=== PATIENT | male | born 1965 | race Caucasian/White ===

== ENCOUNTER → 2020-08-17 13:07 | Outpatient (CLI) | payer BC, SELFPAY ==
--- NOTE | ~2020-08-17 | US_ITS ---
US renal BI 08/17/2020 13:24 Procedure: Realtime transabdominal ultrasound of the kidneys and bladder. Indication: Renal stones Comparison: No prior studies for comparison. Findings: Renal echotexture is normal bilaterally without hydronephrosis, contour deforming mass or r enal calculus. The right kidney measures 12 cm and left kidney measures 11.5 cm. Bladder within norm al limits. Impression: 1: Unremarkable renal ultrasound. No stones, masses or hydronephrosis. Reviewed, dictated and finalized at location B. Impression: 1: Unremarkable renal ultrasound. No stones, masses or hydronephrosis.
== END ==
PROVIDERS: PCP Family Medicine; Visit Provider Family Medicine
DX: N20.0 Calculus of kidney (principal)
CPT/HCPCS: 76775

== ENCOUNTER 2020-11-01 10:30 | Outpatient (CLI) | payer BC, SELFPAY ==
--- NOTE | ~2020-11-01 | XR_ITS ---
XR abdomen/kub 1V 11/01/2020 10:49 INDICATION: Left flank pain. History of kidney stone. TECHNIQUE: KUB COMPARISON: Ultrasound dated 08/17/2020 FINDINGS: Bowel gas pattern is normal. There is no evidence of free air, mass, organomegaly, ascites or obstruction. No abnormal calculi are seen. There are pelvic phleboliths. The bones appear intact . IMPRESSION: 1: No acute abdominal abnormality identified. Reviewed, dictated and finalized at location A. ORK CONTROL SUPERVISOR
== END 2020-11-01 10:31 | disposition home or self-care (01) ==
LOC: ANHIMG 10:36
PROVIDERS: PCP Family Medicine; Visit Provider Internal Medicine Nephrology
DX: R10.9 Unspecified abdominal pain (principal)
CPT/HCPCS: 74018

== ENCOUNTER 2025-02-05 09:34 | Outpatient (CLI) | payer BC, SELFPAY ==
--- OUTSIDE RECORDS SUMMARY | 2025-02-05 10:08 | XMS_ITS | Clinical Summary ---
Author Organization [facility] Address [address] [place] [phone] Phone Care Team Providers Care Silk Blocker Name Role Phone Derek Pavon MD Primary Care Provider Allergies No known active allergies Medications colchicine 0.6 MG tablet One with pain, on one hour later, then daily x 5 prn gout attack 7 tablet 2 02/14/2021 Active Active Problems Problem Noted Date Diagnosed Date Nonspecific abnormal results of function study o f kidney 11/01/2020 Left flank pain 11/01/2020 Hyperuricemia 11/01/2020 Family History Medical History Relation Comments Kidney disease Neg Hx Social History Tobacco Use Types Packs/Day Years Used Date Smoking Tobacco: Never Smokeless Tobacco: Never Alcohol Use Standard Drinks/Week Comments Yes 0 (1 standard drink = 0.6 oz pur e alcohol) rare Sex and Gender Information Value Date Recorded Sex Assigned at Not on file Legal Sex Male 10:18 AM [facility] Gender Identity Not on file Sexual Orientation Not on file Last Filed Vital Signs Vital Sign Reading Time Taken Comments Blood Pressure 124/86 08/17/2021 2:20 PM CDT Pulse 60 08/17/2021 2:20 PM CDT Temperature 36.4 C (97.5 F) 08/17/2021 2:20 PM CDT Respiratory Rate - - Oxygen Saturation - - Inhaled Oxygen Concentration - - Weight 101 kg (222 lb) 08/17/2021 2:20 PM CDT Height 188 cm (6' 2 ) 08/17/2021 2:20 PM CDT Body Mass Index 28.5 08/17/2021 2:20 PM CDT Plan of Treatment Health Maintenance Due Date Last Done Comments Influenza Vaccine (Season Ended) 2025 Insurance [facility] Care Teams Silk Blocker Relationship Specialty Start Date End Date Derek Pavon MD [address] [place] [id number] PCP - General Internal Medicine 09/07/20
--- NOTE | 2025-02-12 16:30 | WPDHOMESLEEP ---
Sleep Study - Home Unattended Date of Study: 02/05/25 Ordering Provider: DAMIR Kirkpatrick-C Interpreting Provider: Bridgette Nielson MD Home Sleep Study Type: Watch PAT Height: 1.88 m Weight: 102.058 kg Body Mass Index: 28.8 Neck Circumference (inches): 17.5 [place]: 16 Reason for Sleep Study Hypersomnolence Sleep History Clinton Cid is a 59-year-old man who has recent fatigue and changes in his sleep. He does not have hypertension or heart disease. He has pre diabetes and gout. His spouse reports that he snores and stops breathing at night. The patient wakes up with headaches and often wakes up gasping for air at night. He does not have difficulty breathing when he sleeps on his back. He wakes up with a dry mouth. He is not refreshed on waking. He has afternoon fatigue and now takes naps. He does not have drowsy driving. He does not have nocturnal heartburn. He wakes twice at night to go to urinate. He does not have difficulty falling asleep, does not have difficulty staying asleep. He does not have muscle weakness with strong emotion. He does not feel paralyzed on waking or falling asleep. He does not have vivid dreamlike scenes on waking or falling asleep. He does dream during his daytime naps. He does not clench or grind his teeth at night. He does not kick during sleep or jerk his legs excessively. He does not have a restless feeling in his legs. He does not act out his dreams. He does not sleep walk. Normal bedtime on work days is 10:30 p.m.. He falls asleep within 15 minutes, spends 8-1/2 hours in bed, 7 hours 45 minute sleeping. On days off, usual bedtime is 11:00 p.m., falling asleep within 15 minutes, spending 9 hours in bed, 8-1/2 hours of sleep. His sleep on days off is a little bit more restorative. He does not take planned naps. Habits: Tobacco: none Caffeine: 1-2 cups daily Alcohol: 1 glass on 1-2 nights per week Recreational substances: [facility] Past Medical History Medical History (Updated 02/12/25 @ 19:15 by Bridgette Nielson MD) Gout Prediabetes Family History Family History Father Family history of malignant neoplasm Social History Social History Smoking status: Never smoker Alcohol intake: current Lack of Transportation: No Lack of Food: Never True Current Housing: I Have Housing Concerned About Future Housing: No Difficulty Paying Gas/Electric Bills: No Difficulty Paying for Meds: No Currently Unemployed: No Education: Bachelor's Degree Difficulty w/ Childcare or Family Care: No Living arrangements: with family Gender identity (if verbalized by the patient): Male Medications Home Medications ?Medication ?Instructions ?Recorded ?Confirmed ?Type loratadine 10 mg tablet (Claritin) 10 mg PO DAILY PRN 06/09/24 01/30/25 History allopurinol 300 mg tablet See Rx Instructions .Route 01/30/25 01/30/25 Rx .COMPLEX #90 tabs Sleep Procedure The sleep study was completed using [employer] a technically adequate device with seven channels: peripheral arterial tone, actigraphy, body position, snore, respiratory movement, pulse oximetry, sleep staging, and heart rate. Prior to using the device, the patient received verbal and written instructions for its application and was provided with the help desk phone number for additional telephonic instruction with 24-hour availability of qualified personnel to answer questions. Sleep Architecture The total recording time is 8 hrs, 15 min. The total sleep time is 7 hrs, 43 min. Sleep latency is 10 minutes. REM latency is 95 minutes. The patient had 7 episodes of waking. Sleep architecture shows 10.8% deep sleep, 64.5% light sleep, and 24.7% stage REM. The patient spent 60.8% of total sleep time in the supine position. Sleep efficiency was 93%. Respiratory Analysis The overall AHI (pAHI 3%:) is 50.6. The central AHI is 21.3. The AHI was 49.9 in NREM and 52.5 in REM sleep. The AHI was 45.6 in Supine and 58.3 in Non-supine sleep. Percent of Gabe Andre respirations is 16.0%. Oximetry Data The oxygen desaturation index (EYAD 4%:) is 36.4. The mean saturation is 91%, and the lowest saturation is 83%. Time spent with saturation < 88% is 40.5 minutes. Snoring Profile Snoring average intensity is 41 dB. The patient snored above 45 decibels for 26.2 minutes, 5.7% of sleep time. Cardiac Profile The average pulse rate is 64 beats per minutes. The lowest pulse rate is 45 bpm. The highest pulse rate is 116 bpm. Cardiac Rhythm Analysis in Sleep shows suspected atrial fibrillation for 1 minute and 19 seconds. The longest event is 50 seconds. The patient had 0.4 premature beats per minute. Assessment and Plan Assessment and Plan (1) Obstructive sleep apnea: Code(s): G47.33 - Obstructive sleep apnea (adult) (pediatric) Status: Acute Assessment and Plan: This home sleep test using WatchPat on February 05, 2025 shows severe obstructive sleep apnea, apnea hypopnea index is 36.4 with desaturation to 83%, moderate central sleep apnea with central apnea index 21.3, 16% of the night with Gabe-Andre respirations, and probable atrial fibrillation. The patient spent 40.5 minutes, 8.7% of the night, with saturation below 88%. He is not a candidate for autoPAP. He needs to have a CPAP titration in the sleep lab with a sleep aid to use, if needed, to get to sleep and stay asleep. Consider Ambien 5 mg to 10 mg or Lunesta 2 mg to 3 mg. He should be instructed not to nap on the day of the study. (2) Central sleep apnea with Gabe-Andre respiration: Code(s): R06.3 - Periodic breathing Status: Acute Assessment and Plan: The central apnea index is 21.3 with 16% of the night showing Gabe-Andre breathing. Normal central apnea index should not exceed 5 events per hour. Gabe-Andre breathing is not a normal pattern. Central sleep apnea can be seen in those with congestive heart failure, stroke, opioid and alcohol dependence, although it can occur without other co-morbid conditions. The medical history does not indicate one of these conditions. However, the cardiac rhythm analysis suggests that atrial fibrillation may be present during sleep. He needs to have an echocardiogram to evaluate LV function. His cardiac rhythm will be monitored during the CPAP titration. Data The data obtained during this sleep study is adequate for interpretation. Certification This sleep study has been reviewed by a board certified sleep medicine physician.
[2025-02-12 17:04] VITALS: BMI 28.8
== END 2025-02-12 12:54 | disposition home or self-care (01) ==
PROVIDERS: PCP Family Medicine; Visit Provider Nurse Practitioner Family
DX: G47.33 Obstructive sleep apnea (adult) (pediatric) (principal)
CPT/HCPCS: 95800

== ENCOUNTER 2025-02-19 09:18 | Outpatient (CLI) | payer BC, SELFPAY ==
--- OUTSIDE RECORDS SUMMARY | 2025-02-19 10:07 | XMS_ITS | Clinical Summary ---
Author Organization [facility] Address [address] [place] [phone] Phone Care Team Providers Care Gear Design Engineer Name Role Phone Derek Pavon MD Primary Care Provider [phone] Allergies No known active allergies Medications colchicine [...] on file Legal Sex [facility] 10:[facility] AM [facility] Gender Identity Not on file Sexual Orientation [...] Comments Influenza Vaccine (Season Ended) 2025 Insurance [facility] Care Teams Gear Design Engineer Relationship Specialty Start Date End Date Derek Pavon MD [address] [place] [phone] PCP - General Internal Medicine 09/07/20
[2025-03-16 20:47] VITALS: BMI 28.8
--- NOTE | 2025-03-16 20:47 | P.SLEEP_ITS ---
Sleep Study Date of Study: 02/19/25 Ordering Provider: Derek Pavon MD Interpreting Physician: Dveika Sofia DO Sleep Study Type: CPAP Titration Height: 1.88 m Weight: 102.058 kg Body Mass Index: 28.8 Neck Circumference (inches): 19 [place]: 16 Reason for Sleep Study WatchPAT home sleep test on 02/05/2025 showed an overall AHI of 36.4, ISAIAH of 21.3 and SEWING DEMONSTRATOR present 16% of total sleep time. Sleep History Clinton Cid is a 59-year-old man who has recent fatigue and changes in his sleep. He does not have hypertension or heart disease. He has pre diabetes and gout. His spouse reports that he snores and stops breathing at night. The patient wakes up with headaches and often wakes up gasping for air at night. He does not have difficulty breathing when he sleeps on his back. He wakes up with a dry mouth. He is not refreshed on waking. He has afternoon fatigue and now takes naps. He does not have drowsy driving. He does not have nocturnal heartburn. He wakes twice at night to go to urinate. He does not have difficulty falling asleep, does not have difficulty staying asleep. He does not have muscle weakness with strong emotion. He does not feel paralyzed on waking or falling asleep. He does not have vivid dreamlike scenes on waking or falling asleep. He does dream during his daytime naps. He does not clench or grind his teeth at night. He does not kick during sleep or jerk his legs excessively. He does not have a restless feeling in his legs. He does not act out his dreams. He does not sleep walk. Normal bedtime on work days is 10:30 p.m.. He falls asleep within 15 minutes, spends 8-1/2 hours in bed, 7 hours 45 minute sleeping. On days off, usual bedtime is 11:00 p.m., falling asleep within 15 minutes, spending 9 hours in bed, 8-1/2 hours of sleep. His sleep on days off is a little bit more restorative. He does not take planned naps. Habits: Tobacco: none Caffeine: 1-2 cups daily Alcohol: 1 glass on 1-2 nights per week Recreational substances: PMFSH Past Medical History Medical History Gout Prediabetes Family History Family History Father Family history of malignant neoplasm Social History Social History Smoking status: Never smoker Alcohol intake: current Lack of Transportation: No Lack of Food: Never True Current Housing: I Have Housing Concerned About Future Housing: No Difficulty Paying Gas/Electric Bills: No Difficulty Paying for Meds: No Currently Unemployed: No Education: Bachelor's Degree Difficulty w/ Childcare or Family Care: No Living arrangements: with family Gender identity (if verbalized by the patient): Male Medications Home Medications Medication Instructions Recorded Confirmed Type loratadine 10 mg tablet (Claritin) 10 mg PO DAILY PRN 06/09/24 01/30/25 History allopurinol 300 mg tablet See Rx Instructions .Route 01/30/25 01/30/25 Rx .COMPLEX #90 tabs zolpidem 10 mg tablet (Ambien) 10 mg PO QHS PRN Sleep study #1 02/13/25 Rx tablet Sleep Procedure A full night CPAP Titration using the [employer] multi-channel system recorded the standard physiologic parameters including EEG, EOG, submentalis EMG, anterior tibialis EMG, EKG, body position, nasal and oral airflow using nasal pressure sensor and thermistor. Respiratory parameters of chest and abdominal movements were recorded with Respiratory Inductance Plethysmography belts. Oxygen saturation was recorded by pulse oximetry. Video monitoring was also performed. Sleep stages, periodic limb movements, and EEG arousals were scored in 30 second epochs according to the criteria of the AASM Scoring Manual. The Apnea-Hypopnea Index was calculated using CMS guidelines for definition of hypopnea with 4% O2 desaturations while scoring respiratory events. Sleep Architecture The total recording time was 394.3 minutes. The total sleep time was 322.5 minutes. Sleep latency was 18.8 minutes. REM latency was 75.0 minutes. Sleep efficiency was 81.8%. The patient had 25 awakenings for an awakening index of 4.7. Wake after Sleep Onset time was 53.5 minutes. The patient spent 16.5 minutes, 5.1% of total sleep time in Stage N1. The patient spent 196.0 minutes, 60.8% in Stage N2. The patient spent 28.0 minutes, 8.7% in Stage N3. The patient spent 82.0 minutes, 25.4% in Stage REM. Respiratory Analysis The patient had 16 hypopneas, 3 obstructive apneas, 7 mixed apneas, and 17 central apneas for an overall Apnea Hypopnea Index of 8.0 events per hour. The REM Apnea Hypopnea Index was 0. The NREM Apnea Hypopnea Index was 10.7. The patient had a Central Apnea Hypopnea Index of 3.2. There was no evidence of Gabe-Andre Respirations. The patient was started on CPAP 5 cm H2O and titrated to CPAP 10 cm H2O. The patient was started on CPAP 5 cm H2O. The patient was able to achieve REM sleep starting on CPAP 5 cm H2O. The patient was able to achieve a residual AHI less than 5 with both NREM and REM sleep onn the final pressure setting. On CPAP 10 cm H2O, the patient spent 104.5 minutes in NREM and 59.5 minutes in REM with 7 central apneas and 5 mixed apneas, resulting in an AHI of 4.4. The patient had a sleep efficiency of 89.6% on this pressure setting. Arousals There were 119 total arousals for an arousal index of 22.1. There were 50 spontaneous arousals for an index of 9.3. There were 20 arousals due to respiratory events for an index of 3.7. There were 43 arousals due to periodic limb movements for an index of 8.0. There were 5 arousals due to isolated limb movements for an index of 0.9. Periodic Limb Movements The patient had 27 isolated limb movements with an index of 5.0. The patient had 332 periodic limb movements with index of 61.8, which is elevated (normal < 15). Patient had a total of 359 limb movements with a total limb movement index of 66.8. Oximetry Data The patient had an average oxygen saturation of 93.7% in sleep with a minimum oxygen saturation of 84.0% and a maximum oxygen saturation of 98.0%. The patient had 34 oxygen desaturations that were 4% or greater resulting in an Oxygen Desaturation Index of 6.3. The patient spent 2 minutes, 0.5% of total sleep time with an oxygen saturation below 88%. Snoring Profile Snoring was present in the beginning of the study. The snoring resolved once the patient was titrated to 10 cm H2O. Cardiac Profile The EKG showed normal sinus rhythm. No arrhythmias or premature beats were seen. The patient had an average pulse rate of 64.9 bpm with a minimum pulse rate of 55.0 bpm and a maximum pulse rate of 85.0 bpm. EEG Profile No signs of seizure activity seen. Assessment and Plan Assessment and Plan (1) Obstructive sleep apnea: Code(s): G47.33 - Obstructive sleep apnea (adult) (pediatric) Status: Acute Assessment and Plan: The patient was started on CPAP 5 cm H2O and titrated to CPAP 10 cm H2O. The patient's sleep apnea resolved on the final pressure setting. I recommend that the patient be prescribed CPAP 10 cm H2O, size medium Resmed AirFit N20 nasal cushion, CPAP filters/tubing and heated humidity. This should be used with all episodes of sleep. Compliance should be reviewed within 31-90 days of starting therapy for usage greater than 4 hours per night greater than 70% of the nights. The patient should be asked about symptoms such as excessive daytime sleepiness, quality of sleep, decreased nocturia, increased mental functioning such as memory, mood, and concentration. While the patient had a significant number of periodic limb movements, the frequency decreased drastically once the patient was titrated to the optimal pressure setting. Data The data obtained during this sleep study is adequate for interpretation. Certification This sleep study has been reviewed by a board certified sleep medicine physician.
== END 2025-02-20 06:55 | disposition home or self-care (01) ==
LOC: ANHCSM 09:23
PROVIDERS: PCP Family Medicine; Visit Provider Family Medicine
DX: G47.33 Obstructive sleep apnea (adult) (pediatric) (principal)
CPT/HCPCS: 95811